=== PATIENT | male | born 1995 | race Caucasian/White ===

== ENCOUNTER 2017-07-04 20:04 | Emergency (ER) | payer BC, OTHER ==
[~2017-07-04] VITALS: Ht 193 cm; Wt 117.9 kg
[2017-07-04] MEDS ORDERED: LIDOCAINE 1% HCL (LOCAL ANESTH.) INJ 20ML MDV ONE (20:10)
[2017-07-04] MEDS ORDERED: LIDOCAINE HCL 2% TOP JELLY 5ML TOP ONE (20:23)
[2017-07-04] MEDS ORDERED: NEOMYCIN-BACITRACIN-POLYM 15GM TOP OINT TOP ONE (20:26)
[2017-07-04 20:48] VITALS: BP 144/61
== END 2017-07-04 20:46 | disposition home or self-care (01) ==
LOC: ER 20:09
DX: S61.215A Laceration without foreign body of left ring finger without damage to nail, initial encounter (principal); W26.0XXA Contact with knife, initial encounter; Y93.89 Activity, other specified; Y99.8 Other external cause status; Y92.89 Other specified places as the place of occurrence of the external cause
CPT/HCPCS: 12002; 99283; J2001